=== PATIENT | male | born 1930 | race Caucasian/White ===

== ENCOUNTER 2016-08-25 09:25 | Emergency (ER) | payer OTHER ==
[~2016-08-25] VITALS: Ht 167.6 cm; Wt 68.0 kg
[~2016-08-25 09:25] MED LIST: BIOFTAB PEG; CHOL1000 PO; FINA5TAB PO; LISI-729 PO; PRT/20 PO; TAMS0.4C38 PO
[2016-08-25 09:30] VITALS: Ht 167.6 cm; Wt 68.0 kg
[2016-08-25 09:49] LABS: BASO % 0.2 %; BASO ABS # 0.02 K/uL (0-0.2); COMPLETE YES; EOS % 0.4 %; HEMATOCRIT 48.4 % (42-52); IG% 0.4 %; LYMPH % 8.9 %; LYMPH ABS # 0.73 K/uL (1.2-3.4); MEAN CELL VOLUME 90.8 fL (80-100); MEAN CORPUSCULAR HEMOGLOBIN 32.1 pg (25-34); MEAN CORPUSCULAR HGB CONC 35.3 g/dl (32-36); MEAN PLATELET VOLUME 10.5 fL (7.4-10.4); MONO % 4.6 %; NEUT % 85.5 %; PLATELET COUNT 148 K/uL (130-400); RED BLOOD COUNT 5.33 M/uL (4.7-6.1); WHITE BLOOD COUNT 8.18 K/uL (4.8-10.8)
[2016-08-25] MEDS ORDERED: ONDANSETRON INJ 2 MG/ML 2 ML VIAL IV STA (10:03)
[2016-08-25] MEDS ORDERED: SODIUM CHLORIDE 0.9% 1000ML 1,000 ML IV STA (10:03)
[2016-08-25] MEDS ORDERED: MECLIZINE HCL 25 MG TAB PO STA (10:05)
[2016-08-25 10:07] LABS: ALT/SGPT 32 U/L (12-78); AST/SGOT 21 U/L (15-37); BLOOD UREA NITROGEN 22 mg/dl (7-18); BUN/CREATININE RATIO 21.6 (10-20); CALCIUM 8.6 mg/dl (8.5-10.1); CARBON DIOXIDE 28 mmol/L (21-32); CHLORIDE 104 mmol/L (98-107); GLUCOSE 97 mg/dl (70-99); POTASSIUM 4.3 mmol/L (3.5-5.1); SODIUM 140 mmol/L (136-145)
--- NOTE | 2016-08-25 10:10 | EMERGENCY ROOM VISIT NOTE ---
History Report prepared by Dionte: Mehrdad Alejandro Under the Supervision of: Dr. Wiliam Britt M.D. First contact with patient: 09:29 Chief Complaint: NAUSEA Stated Complaint: DIZZY/NAUSEA History of Present Illness The patient is a 86 year old male who presents to the Emergency Room with complaints of intermittent dizziness that started this morning. The patient states that he was walking his dog this morning and carrying bale back to his house when he started to feel dizzy. He reports that he had a preop at the [facility] in [place] for his gallstones this morning, but when he got there they had to put him in a wheelchair due to his dizziness. He states that the [facility] told him he should be sent to the ED. The patient states that he was experiencing heartburn, nausea, vomiting, and weakness. The patient reports that his dizziness is less severe than what he was experiencing this morning. He reports that he has had several attacks like this before. The patient denies any abdominal pain. Source of History: patient Onset: this morning Position: other (global) Timing: intermittent Modifying Factors (Relieving): rest Associated Symptoms: + nausea, + vomiting, + weakness, No abdominal pain Review of Systems See HPI for pertinent positives & negatives. A total of 10 systems reviewed and were otherwise negative. Past Medical & Surgical The patient does not report any past medical or surgical history Family History Patient reports no known family medical history. Social History Smoking Status: Former Smoker Drug Use: none Occupation Status: retired Current/Historical Medications Scheduled Bioflavonoid Products (Vitamin C Tr), 100 MG PEG QAM Cholecalciferol (Vitamin D3), 1 TAB PO QAM Finasteride (Proscar), 5 MG PO QAM Lisinopril (Prinivil), 5 MG PO QAM Ondasetron Odt (Zofran Odt), 4 MG SL Q6H Pantoprazole (Protonix), 20 MG PO QAM Tamsulosin Hcl (Flomax), 0.4 MG PO QAM Scheduled PRN Meclizine Hcl (Meclizine Hcl), 1 TAB PO TID PRN for Dizziness or Vertigo Allergies Coded Allergies: No Known Allergies (Unverified , 08/25/16) Physical Exam Vital Signs Date Time Temp Pulse Resp B/P (MAP) Pulse Ox O2 Delivery O2 Flow Rate FiO2 08/25/16 13:01 36.5 76 16 148/90 95 08/25/16 12:18 77 16 149/91 96 Room Air 08/25/16 09:41 84 157/81 81 153/101 94 169/97 08/25/16 09:37 Room Air 08/25/16 09:34 78 08/25/16 09:30 36.5 77 20 169/97 99 Room Air Physical Exam GENERAL: Patient is a healthy-appearing well-nourished HEAD: Normocephalic atraumatic EYES: Ocular movements intact pupils equal and react to light OROPHARYNX mucous membranes are moist no exudates present no erythema or edema present NECK: Supple no nuchal rigidity CHEST: Good equal expansion LUNGS: Clear and equal to auscultation CARDIAC: Normal S1 and S2 ABDOMEN: Soft nontender no guarding BACK: No CVA tenderness EXTREMITIES: No pain upon palpation normal muscle strength in all groups no clubbing cyanosis or edema NEURO: Patient is following commands and answering questions appropriately. Alert and oriented x3 Cranial Nerves 2-12 grossly intact Medical Decision & Procedures ER Provider Diagnostic Interpretation: Radiology results as stated below per my review and radiologist interpretation: HEAD CT NONCONTRAST CT DOSE: 614.27 mGy.cm HISTORY: Dizziness. TECHNIQUE: Multiaxial CT images of the head were performed without the use of intravenous contrast. Automated exposure control was utilized for this study. Comparison: None. Findings: The paranasal sinuses and mastoid air cells are clear. The calvarium and skull base are intact. The ventricles and sulci are within normal limits. There is no mass, hematoma, midline shift, or acute infarct. Impression: No acute intracranial abnormality. Electronically signed by: Ajith Prabhakar M.D. 08/25/2016 10:45 AM Dictated Date/Time: 08/25/2016 10:41 AM CHEST ONE VIEW PORTABLE CLINICAL HISTORY: Pt c/o weakness dizziness pain. Weakness. COMPARISON STUDY: No previous studies for comparison. FINDINGS: The bones soft tissues and hemidiaphragms are normal. The cardiomediastinal silhouette is normal. The lungs are clear. The pulmonary vasculature is normal. IMPRESSION: Negative chest. Electronically signed by: Roscoe Roberson M.D. 08/25/2016 10:26 AM Dictated Date/Time: 08/25/2016 10:26 AM ABDOMINAL ULTRASOUND, RIGHT UPPER QUADRANT HISTORY: Right upper quadrant abdominal pain. COMPARISON: None. FINDINGS: Liver is sonographically normal. There is no biliary ductal dilatation. The common bile duct measures 4 mm in caliber. The gallbladder is filled with gallstones. There is no gallbladder wall thickening. There is no pericholecystic fluid. The pancreas is obscured by overlying bowel gas. There is no right hydronephrosis. IMPRESSION: 1. Gallbladder filled with gallstones. No gallbladder wall thickening. 2. No biliary ductal dilatation. 3. Obscured pancreas due to overlying bowel gas. Electronically signed by: Azeem Baird M.D. 08/25/2016 11:30 AM Dictated Date/Time: 08/25/2016 11:29 AM Laboratory Results 08/25/16 09:35 Red Blood Count 5.33, Mean Corpuscular Volume 90.8, Mean Corpuscular Hemoglobin 32.1, Mean Corpuscular Hemoglobin Concent 35.3, Mean Platelet Volume 10.5, Neutrophils (%) (Auto) 85.5, Lymphocytes (%) (Auto) 8.9, Monocytes (%) (Auto) 4.6, Eosinophils (%) (Auto) 0.4, Basophils (%) (Auto) 0.2, Neutrophils # (Auto) 6.99, Lymphocytes # (Auto) 0.73, Monocytes # (Auto) 0.38, Eosinophils # (Auto) 0.03, Basophils # (Auto) 0.02 08/25/16 09:35 Test 08/25/16 09:35 08/25/16 09:36 08/25/16 11:19 White Blood Count 8.18 K/uL (4.8-10.8) Red Blood Count 5.33 M/uL (4.7-6.1) Hemoglobin 17.1 g/dL (14.0-18.0) Hematocrit 48.4 % (42-52) Mean Corpuscular Volume 90.8 fL (80-100) Mean Corpuscular Hemoglobin 32.1 pg (25-34) Mean Corpuscular Hemoglobin Concent 35.3 g/dl (32-36) Platelet Count 148 K/uL (130-400) Mean Platelet Volume 10.5 fL (7.4-10.4) Neutrophils (%) (Auto) 85.5 % Lymphocytes (%) (Auto) 8.9 % Monocytes (%) (Auto) 4.6 % Eosinophils (%) (Auto) 0.4 % Basophils (%) (Auto) 0.2 % Neutrophils # (Auto) 6.99 K/uL (1.4-6.5) Lymphocytes # (Auto) 0.73 K/uL (1.2-3.4) Monocytes # (Auto) 0.38 K/uL (0.11-0.59) Eosinophils # (Auto) 0.03 K/uL (0-0.5) Basophils # (Auto) 0.02 K/uL (0-0.2) RDW Standard Deviation 43.0 fL (36.4-46.3) RDW Coefficient of Variation 13.0 % (11.5-14.5) Immature Granulocyte % (Auto) 0.4 % Immature Granulocyte # (Auto) 0.03 K/uL (0.00-0.02) Anion Gap 8.0 mmol/L (3-11) Est Creatinine Clear Calc Drug Dose 49.6 ml/min Estimated GFR () 79.7 Estimated GFR (Non- 68.8 BUN/Creatinine Ratio 21.6 (10-20) Calcium Level 8.6 mg/dl (8.5-10.1) Total Bilirubin 1.4 mg/dl (0.2-1) Direct Bilirubin 0.3 mg/dl (0-0.2) Aspartate Amino Transf (AST/SGOT) 21 U/L (15-37) Alanine Aminotransferase (ALT/SGPT) 32 U/L (12-78) Alkaline Phosphatase 67 U/L (45-117) Total Creatine Kinase 41 U/L (39-308) Creatine Kinase MB 2.1 ng/ml (0.5-3.6) Creatine Kinase MB Ratio 5.1 (0-3.0) Troponin I < 0.015 ng/ml (0-0.045) Total Protein 7.0 gm/dl (6.4-8.2) Albumin 3.7 gm/dl (3.4-5.0) Thyroid Stimulating Hormone (TSH) 0.302 uIu/ml (0.300-4.500) Bedside Glucose 99 mg/dl (70-99) Urine Color YELLOW Urine Appearance CLEAR (CLEAR) Urine pH 8.0 (4.5-7.5) Urine Specific [place] 1.014 (1.000-1.030) Urine Protein NEG (NEG) Urine Glucose (UA) NEG (NEG) Urine Ketones TRACE (NEG) Urine Occult Blood NEG (NEG) Urine Nitrite NEG (NEG) Urine Bilirubin NEG (NEG) Urine Urobilinogen NEG (NEG) Urine Leukocyte Esterase NEG (NEG) Labs reviewed by ED physician. Medications Administered Medications (Trade) Dose Ordered Sig/Tam Route Start Time Stop Time Status Last Admin Dose Admin Sodium Chloride 1,000 ml @ 999 mls/hr Q1H1M STAT IV 08/25/16 10:03 08/25/16 11:03 DC 08/25/16 10:18 999 MLS/HR Meclizine HCl (Antivert Tab) 25 mg NOW STAT PO 08/25/16 10:05 08/25/16 10:07 DC 08/25/16 10:19 25 MG ECG Indication: nausea Rate (beats per minute): 74 Rhythm: sinus rhythm Findings: PVC, no acute ischemic change ED Course 0953: Past medical records reviewed. The patient was evaluated in room A03. A complete history and physical examination was performed. 1003: Zofran Injection 4 mg IV, Sodium Chloride 1000 ml @ 999 mls/hr IV. 1005: Antivert Tab 25 mg PO. 1206: Upon reexamination the patient is doing well. I discussed results and treatment plan with the patient. He verbalizes agreement and understanding. The patient is ready for discharge. Medication Reconciliation: I attest that I have personally reviewed the patient' s current medication list Blood Pressure Screening: Patient was found to have an elevated blood pressure and was referred to their primary care doctor for recheck and further treatment Medical Decision The differential diagnosis includes but is not limited to: Differential diagnosis: Etiologies such as metabolic, infection, hypo/hyperglycemia, electrolyte abnormalities, cardiac sources, intracerebral event, toxicologic, neurologic, as well as others were entertained. Blood Pressure Screening: Patient was found to have an elevated blood pressure and was referred to their primary care doctor for recheck and further treatment Medication Reconciliation: I attest that I have personally reviewed the patient' s current medication list This is an 86-year-old male who presents emergency department complaining of dizziness that started this morning. Complaining the dizziness the patient had a large amount of vomiting. Upon arrival to the emergency department the patient is feeling a little better. He states he does have a history of vertigo. He is currently being worked up for gallbladder removal however he denies any abdominal pain and he has a soft abdomen. Serial abdominal examinations were performed on the patient in the emergency department and at no tender the patient exhibit a surgical abdomen. An IV was established, patient given normal saline bolus, meclizine, Zofran. Repeat examination revealed much improvement the patient's symptoms. The patient was ambulated in the emergency department and was also fed. He does not appear to have any recurrence of his symptoms. I will place him on meclizine for follow-up with his primary care physician. Patient was in agreement with the treatment plan. Impression Primary Impression: Vertigo Scribe Attestation The scribe's documentation has been prepared under my direction and personally reviewed by me in its entirety. I confirm that the note above accurately reflects all work, treatment, procedures, and medical decision making performed by me. Departure Information Dispostion Home / Self-Care Prescriptions Ondasetron Odt (ZOFRAN ODT) 4 Mg Tab 4 MG SL Q6H for Nausea, #6 TAB Prov: Wiliam Britt MD 08/25/16 Meclizine Hcl (MECLIZINE HCL) 25 Mg Tab 1 TAB PO TID Y for Dizziness or Vertigo for 10 Days, #30 TAB Prov: Wiliam Britt MD 08/25/16 Referrals Alexandria Yuan M.D. (PCP) Forms HOME CARE DOCUMENTATION FORM, IMPORTANT VISIT INFORMATION Patient Instructions ED BPV Vertigo, My [facility] Additional Instructions You were found to have an elevated blood pressure today (>120 sytolic or >90 diastolic). Per medicare guidelines, you need to follow up with this blood pressure screening with your Primary Care Physician (PCP). For a new PCP call [phone]. You have been examined and treated today on an emergency basis only. This is not a substitute for, or an effort to provide, complete comprehensive medical care. It is impossible to recognize and treat all injuries or illnesses in a single emergency department visit. It is therefore important that you follow up closely with Dr yuan. Call as soon as possible for an appointment. Thank you for your time and consideration. I look forward to speaking with you again soon. Please don't hesitate to call us if you have any questions.
[2016-08-25 10:18] LABS: ALKALINE PHOSPHATASE 67 U/L (45-117); CKMB/CK RATIO 5.1 (0-3.0); THYROID STIMULATING HORMONE 0.302 uIu/ml (0.300-4.500)
--- NOTE | 2016-08-25 10:27 | DIAGNOSTIC IMAGING REPORT ---
CHEST ONE VIEW PORTABLE CLINICAL HISTORY: Pt c/o weakness dizziness pain. Weakness. COMPARISON STUDY: No previous studies for comparison. FINDINGS: The bones soft tissues and hemidiaphragms are normal. The cardiomediastinal silhouette is normal. The lungs are clear. The pulmonary vasculature is normal. IMPRESSION: Negative chest. Electronically signed by: Roscoe Roberson M.D. 08/25/2016 10:26 AM Dictated Date/Time: 08/25/2016 10:26 AM
--- NOTE | 2016-08-25 10:46 | DIAGNOSTIC IMAGING REPORT ---
HEAD CT NONCONTRAST CT DOSE: 614.27 mGy.cm HISTORY: Dizziness. TECHNIQUE: Multiaxial CT images of the head were performed without the use of intravenous contrast. Automated exposure control was utilized for this study. Comparison: None. Findings: The paranasal sinuses and mastoid air cells are clear. The calvarium and skull base are intact. The ventricles and sulci are within normal limits. There is no mass, hematoma, midline shift, or acute infarct. Impression: No acute intracranial abnormality. Electronically signed by: Ajith Prabhakar M.D. 08/25/2016 10:45 AM Dictated Date/Time: 08/25/2016 10:41 AM
--- NOTE | 2016-08-25 11:32 | DIAGNOSTIC IMAGING REPORT ---
ABDOMINAL ULTRASOUND, RIGHT UPPER QUADRANT HISTORY: Right upper quadrant abdominal pain. COMPARISON: None. FINDINGS: Liver is sonographically normal. There is no biliary ductal dilatation. The common bile duct measures 4 mm in caliber. The gallbladder is filled with gallstones. There is no gallbladder wall thickening. There is no pericholecystic fluid. The pancreas is obscured by overlying bowel gas. There is no right hydronephrosis. IMPRESSION: 1. Gallbladder filled with gallstones. No gallbladder wall thickening. 2. No biliary ductal dilatation. 3. Obscured pancreas due to overlying bowel gas. Electronically signed by: Azeem Baird M.D. 08/25/2016 11:30 AM Dictated Date/Time: 08/25/2016 11:29 AM
[2016-08-25 11:44] LABS: URINE APPEARANCE CLEAR (CLEAR); URINE BILIRUBIN NEG (NEG); URINE COLOR YELLOW; URINE NITRITE NEG (NEG); URINE SPECIFIC GRAVITY 1.014 (1.000-1.030); UROBILINOGEN NEG (NEG)
[2016-08-25 11:56] LABS: MANUAL MICROSCOPIC REQUIRED? NO; REVIEW REQ? NO
[2016-08-25] MEDS ORDERED: ONDA4TAB10 SL (12:25)
[2016-08-25] MEDS ORDERED: MECL1TAB42 PO (12:25)
[2016-08-25 13:01] VITALS: BP 148/90; PULSE 76; TEMP 36.5; O2SAT 95
[2016-09-04] MEDS ORDERED: OXYC-57 PO (13:48)
== END 2016-08-25 13:02 | disposition home or self-care (01) ==
LOC: EDBD 09:25 → C.EDA 09:27
DX: R42 Dizziness and giddiness (principal)

== ENCOUNTER 2016-09-04 09:18 | Day surgery (SDC) | payer OTHER ==
[2016-08-20 10:11] VITALS: BMI 24.0
--- NOTE | 2016-08-20 10:40 | PAT Medication Instructions ---
Service Date Aug 20, 2016. Current Home Medication List Bioflavonoid Products (Vitamin C Tr), 100 MG PEG QAM Cholecalciferol (Vitamin D3), 1 TAB PO QAM Finasteride (Proscar), 5 MG PO QAM Lisinopril (Prinivil), 5 MG PO QAM Pantoprazole (Protonix), 20 MG PO QAM Tamsulosin Hcl (Flomax), 0.4 MG PO QAM Medication Instructions For Your Scheduled Surgery - Hold the following medications the morning of surgery: Tamsulosin Hcl (Flomax), 0.4 MG PO QAM Finasteride (Proscar), 5 MG PO QAM Lisinopril (Prinivil), 5 MG PO QAM Bioflavonoid Products (Vitamin C Tr), 100 MG QAM Cholecalciferol (Vitamin D3), 1 TAB PO QAM - Take the following medications the morning of surgery with a sip of water: Pantoprazole (Protonix), 20 MG PO QAM If you have any questions please call us at [phone] or [phone] or [phone]
[2016-08-20 11:00] LABS: BASO % 0.3 %; BASO ABS # 0.02 K/uL (0-0.2); COMPLETE YES; EOS % 1.5 %; HEMATOCRIT 50.1 % (42-52); IG% 0.4 %; LYMPH % 18.5 %; LYMPH ABS # 1.43 K/uL (1.2-3.4); MEAN CELL VOLUME 91.6 fL (80-100); MEAN CORPUSCULAR HEMOGLOBIN 31.6 pg (25-34); MEAN CORPUSCULAR HGB CONC 34.5 g/dl (32-36); MEAN PLATELET VOLUME 10.6 fL (7.4-10.4); MONO % 7.6 %; NEUT % 71.7 %; PLATELET COUNT 158 K/uL (130-400); RED BLOOD COUNT 5.47 M/uL (4.7-6.1); WHITE BLOOD COUNT 7.75 K/uL (4.8-10.8)
[~2016-09-04] VITALS: Ht 167.6 cm; Wt 68.2 kg
[~2016-09-04 09:18] MED LIST changes: +CEFAZOLIN 2000 MG/60 ML D5W IV SCH; +LACTATED RINGER'S 1000ML 1,000 ML IV SCH; +MECL1TAB42 PO; +ONDA4TAB10 SL
[2016-09-04 10:08] VITALS: BP 152/78; PULSE 74; TEMP 36.6; O2SAT 95; Ht 167.6 cm; Wt 68.2 kg
[2016-09-04] MEDS ORDERED: LIDOCAINE HCL 2% 2 ML VIAL (20MG/ML) ONE ×2 (11:01→11:48)
[2016-09-04] MEDS ORDERED: NEOSTIGMINE METHYLSULFATE 5 MG/5 ML SYR ONE ×2 (11:01→13:22)
[2016-09-04] MEDS ORDERED: ROCURONIUM BROMIDE 10 MG/ML 5 ML VIAL ONE ×2 (11:01→11:48)
[2016-09-04] MEDS ORDERED: ONDANSETRON INJ 2 MG/ML 2 ML VIAL ONE (11:01)
[2016-09-04] MEDS ORDERED: GLYCOPYRROLATE INJ 0.2 MG/ML VIAL ONE ×2 (11:01→13:22)
[2016-09-04] MEDS ORDERED: PROPOFOL IV EMULSION 10 MG/ML 20 ML VIAL IV ONE ×2 (11:01→11:48)
[2016-09-04] MEDS ORDERED: FENTANYL CITRATE INJ 50 MCG/1 ML 2 ML VIAL ONE ×3 (11:02→13:30)
[2016-09-04] MEDS ORDERED: MIDAZOLAM HCL 1 MG/ML 2ML VIAL ONE (11:02)
--- NOTE | 2016-09-04 11:41 | History & Physical Bridge Note ---
H&P Re-Evaluation Bridge Note: I have examined the patient, reviewed the History & Physical and in the interval since the performance of the History & Physical I have noted the following changes of clinical significance: No changes noted
[2016-09-04] MEDS ORDERED: FENTANYL CITRATE INJ 50 MCG/1 ML 2 ML VIAL IV PRN (11:45)
[2016-09-04] MEDS ORDERED: ATROPINE SULFATE 0.1 MG/ML 5ML SYR IV PRN (11:45)
[2016-09-04] MEDS ORDERED: PROMETHAZINE HCL INJ 6.25 MG in SODIUM CHLORIDE 0.9% 50ML 50 ML IV PRN (11:45)
[2016-09-04] MEDS ORDERED: ONDANSETRON INJ 2 MG/ML 2 ML VIAL IV PRN ×2 (11:45→13:45)
[2016-09-04] MEDS ORDERED: EpHEDrine SULFATE INJ 50 MG/ML AMP IV PRN (11:45)
[2016-09-04] MEDS ORDERED: BACITRACIN OINT 15 GM TUBE ONE (11:53)
[2016-09-04] MEDS ORDERED: LIDOCAINE HCL 1% 20 ML VIAL ONE (11:53)
[2016-09-04] MEDS ORDERED: BUPIVACAINE 0.5 % 5 MG/1 ML MPF 30ML VIAL ONE (11:53)
[2016-09-04] MEDS ORDERED: D5W AND 1/2NSS + 20MEQ KCL 1,000 ML IV SCH (13:43)
[2016-09-04] MEDS ORDERED: HYDROmorphone INJ 1 MG/ML SYR IV PRN (13:45)
[2016-09-04] MEDS ORDERED: ACETAMINOPHEN 325 MG TAB PO PRN (13:45)
[2016-09-04] MEDS ORDERED: HYDROCODONE/ACETAMOPHEN 5/325MG TAB PO PRN (13:45)
--- NOTE | 2016-09-04 13:46 | [facility] Post Operative Brief Note ---
Immediate Operative Summary Operative Date Sep 04, 2016. Pre-Operative Diagnosis acute cholecystitis, cholelithiasis Post-Operative Diagnosis same Procedure(s) Performed Laparoscopic Cholecystectomy Surgeon Dr. Ananda Leyva Supervisor Color Paste Mixing Surgeon(s) None Estimated Blood Loss 10ml Findings acte cholecystitis, cholelithiasis Fluids (cc crystalloids) 700ml Specimens A. gallbladder Drains none Anesthesia general Complication(s) None Disposition Recovery Room / PACU
[2016-09-04] MEDS ORDERED: OXYC-57 PO (13:48)
--- NOTE | 2016-09-04 13:51 | Discharge Instructions ---
Discharge Instructions Date of Service Sep 04, 2016. Visit Reason for Visit: Chronic Cholecystitis, Cholelithiasis Discharge Discharge Diagnosis / Problem: S/P laparoscopic cholecystectomy Discharge Goals Goal(s): Decrease discomfort, Improve function, Improve nutritional status Activity Recommendations Activity Limitations: per Instructions/Follow-up section Lifting Limitations: no more than 25 pounds Exercise/Sports Limitations: gradually increase as tolerated May Resume Sexual Activity: when tolerated Shower/Bathe: may shower/bathe in 3 days Anesthesia . Post Anesthesia Instructions: If you have had General Anesthesia or IV Sedation: * Do not drive today. * Resume driving when surgeon permits. * Do not make important decisions or sign legal documents today. * Call surgeon for: 1. Temperature elevations greater than 101 degrees F. 2. Uncontrollable pain. 3. Excessive bleeding. 4. Persistent nausea and vomiting. 5. Medication intolerance (nausea, vomiting or rash). * For nausea and vomiting use only clear liquids such as: tea, soda, bouillon until nausea subsides, then gradually increase diet as tolerated. * If you have any concerns or questions, call your surgeon's office. If physician is unavailable and it is an emergency, call 911 or go to the nearest emergency room. . Instructions / Follow-Up Instructions / Follow-Up keep the dressing on for 4 days, he can take a shower on . no driving while taking pian medicine, followup me 1 week, Diet Recommendations Recommended Home Diet: resume previous diet Procedures Procedures Performed: Laparoscopic Cholecystectomy Pending Studies Studies pending at discharge: no Medical Emergencies . Who to Call and When: Medical Emergencies: If at any time you feel your situation is an emergency, please call 911 immediately. . Non-Emergent Contact Non-Emergency issues call your: Primary Care Provider, Surgeon Call Non-Emergent contact if: you have a fever, temperature is above 100.5, your pain is not controlled, your pain is worsening, wound has increased drainage, wound has increased redness . . "Provider Documentation" section prepared by Ananda Leyva. . [place] Drug Monitoring Program Search Results: no issues identified
--- NOTE | 2016-09-04 14:21 | Anesthesiology Progress Note ---
Anesthesia Post Op Note Date & Time Sep 04, 2016 at 14:21 Vital Signs Pain Intensity: 2 Vital Signs Past 12 Hours Date Time Temp Pulse Resp B/P (MAP) Pulse Ox O2 Delivery O2 Flow Rate FiO2 09/04/16 14:10 58 16 124/61 99 Room Air Oxymask Oxyhood 09/04/16 14:00 51 16 116/55 100 Oxymask 10 09/04/16 13:50 58 16 131/66 100 Oxymask 10 09/04/16 13:43 36.5 55 16 140/69 98 Oxymask 10 09/04/16 10:08 36.6 74 18 152/78 (102) 95 Room Air Notes Mental Status: alert / awake / arousable, participated in evaluation Pt Amnestic to Procedure: Yes Nausea / Vomiting: adequately controlled Pain: adequately controlled Airway Patency, RR, SpO2: stable & adequate BP & HR: stable & adequate Hydration State: stable & adequate Anesthetic Complications: no major complications apparent
[2016-09-04 14:34] VITALS: BP 154/68; PULSE 66; TEMP 36.5; O2SAT 98
[2016-09-04 15:04] VITALS: BP 139/63; PULSE 56; O2SAT 96
--- NOTE | 2016-09-04 15:27 | OPERATIVE REPORT ---
DATE OF OPERATION: 09/04/2016 PREOPERATIVE DIAGNOSIS: Acute cholecystitis, cholelithiasis. POSTOPERATIVE DIAGNOSIS: Same. PROCEDURE: Laparoscopic cholecystectomy. SURGEON: Dr. Ananda Leyva. ANESTHESIA: General. ESTIMATED BLOOD LOSS: About 10 mL. FINDINGS: Acute cholecystitis, cholelithiasis. IV FLUIDS: 600 mL. COMPLICATIONS: None. INDICATIONS FOR THE PROCEDURE: This is a 86-year-old gentleman who presented with right upper quadrant pain. The patient had ultrasound showed acute cholecystitis with gallstones. The patient will be required to do laparoscopic cholecystectomy, possible open, possible cholangiogram. I did talk to the patient about the benefit and risk, alternate procedure. I indicated the risks may include but not limited such as bleeding, infection, injury to common bile duct, injury to bowel, may need ERCP, myocardial infarction, DVT, stroke and even . The patient understands. He signed informed consent and I answered all questions. OPERATION AND FINDINGS: DETAILS OF PROCEDURE: We brought the patient to the OR, put the patient in the supine position. The patient received SCD on bilateral legs to prevent DVT. Also, patient received 2 grams Ancef IV for prophylactic antibiotic. The patient received general anesthesia without difficulty. The abdomen was prepped and draped in routine sterile fashion. After time out an injection of local anesthesia by using 1% lidocaine mixed with 0.25% Marcaine just above the umbilical. Then I made a small incision just above umbilical, opened fascia and opened peritoneum under direct vision. I put a Loc trocar in, connected to CO2 to create pneumoperitoneum. Flow rate is 6 liter per minute. Pressure not more than 14 mmHg. Once we get a nice pneumoperitoneum, we put a 10 mm camera in to look around the abdomen shows no more findings on the stomach, small bowel, large bowel, liver; however omentum covers the gallbladder. The gallbladder was significantly thickening, edema, showing chronic cholecystitis. Then, we put another 3.5 mm trocar on the right upper quadrant. Once all trocars in I put grasper in to hold the base of the gallbladder; however, because the patient had significant inflammation on the gallbladder we had to decompress the gallbladder first suctioned some gallbladder through the needle, then we grasper in the base of the gallbladder, put direction to the diaphragm and put another grasper in to hold the pouch of the gallbladder, put latter in to expose the triangle of Calot. Cystic duct was identified and mobilized. I put two 5 mm metal clips on the proximal cystic duct, one on the distal cystic duct then I used scissor transection the cystic duct. Then the cystic artery was identified and mobilized. Then I put two 5 mm metal clips on the proximal cystic arterial, 1 on the distal cystic artery. Then, I used scissor transection the cystic artery. Then I used Bovie to take down the gallbladder through the liver bed without difficulty, then we removed the gallbladder through the catch bag. Then we reinserted Loc trocar in and created pneumoperitoneum, again checked abdomen no active bleeding, no bile leak from the liver bed. Then I removed all trocars under direct vision. No active bleeding from trocar sites. The pneumoperitoneum was released. Then I closed the umbilical fascial layer by using figure-of-8 x2, used #1 Vicryl, closed subcutaneous layer by using 2-0 Vicryl, closed skin by using 4-0 Vicryl, another 3.5 mm trocar site closed skin only by using 4-0 Vicryl. The patient tolerated the procedure well. All instrument, needle and sponge count correct x2 at the end of case. The patient transferred to recovery room in stable condition. After the procedure, I did talk to the patient's family member about the OR finding and procedure we did, they understand. The specimen sent to pathology. I attest to the content of the Intraoperative Record and any orders documented therein. Any exceptions are noted below. ROLAN
[2016-09-04 15:34] VITALS: BP 148/68; PULSE 59; TEMP 36.6; O2SAT 98
[2016-09-05] MEDS ORDERED: CEFAZOLIN IV 2,000 MG/60 ML D5W IV ONE (06:00)
== END 2016-09-04 15:55 | disposition home or self-care (01) ==
LOC: C.ACU 09:18
PROVIDERS: ATTEND Surgery
DX: K80.12 Calculus of gallbladder with acute and chronic cholecystitis without obstruction (principal); I10 Essential (primary) hypertension; E78.5 Hyperlipidemia, unspecified; K21.9 Gastro-esophageal reflux disease without esophagitis; N40.1 Benign prostatic hyperplasia with lower urinary tract symptoms; N13.8 Other obstructive and reflux uropathy; M11.269 Other chondrocalcinosis, unspecified knee; M17.10 Unilateral primary osteoarthritis, unspecified knee; M19.019 Primary osteoarthritis, unspecified shoulder; M81.0 Age-related osteoporosis without current pathological fracture; Z87.891 Personal history of nicotine dependence; Z79.899 Other long term (current) drug therapy